=== PATIENT | female | born 1955 | race Two or more races ===

== ENCOUNTER 2018-08-02 05:25 | Day surgery (SDC) | payer OTHER ==
[~2018-08-02 05:25] MED LIST: ASA81 MG; ASPIR 8181 MG PO; ASPIRIN LOW-STR81 M1; METROPOLOL PO; TOPROL XL25 MG; URETRON D/S TAB1 TAB; ZOCOR10 PO
[2018-08-02] MEDS ORDERED: PERCOCET 5-3251 EACH PO ×2 (11:40)
[2018-08-02] MEDS ORDERED: NEURONTIN300 MG PO ×2 (11:42)
[2018-08-02] MEDS ORDERED: POLY119PG PO ×2 (11:43)
[2018-08-05] MEDS ORDERED: CELECOXIB100 MG PO (02:18)
[2018-08-05] MEDS ORDERED: SIMETHICONE180 MG PO (02:26)
== END 2018-08-02 13:00 | disposition home or self-care (01) ==
LOC: CIR.AMB 05:25
DX: K43.0 Incisional hernia with obstruction, without gangrene (principal)

== ENCOUNTER → 2018-08-04 | Emergency (ER) | payer OTHER ==
[~2018-08-04] VITALS: Ht 172.7 cm; Wt 67.1 kg
[~2018-08-04] MED LIST changes: +CELECOXIB100 MG PO; +NEURONTIN300 MG PO; +PERCOCET 5-3251 EACH PO; +POLY119PG PO; +SIMETHICONE180 MG PO
== END | disposition home or self-care (01) ==
LOC: ER 22:45
DX: L76.32 Postprocedural hematoma of skin and subcutaneous tissue following other procedure (principal)

== ENCOUNTER 2019-06-23 09:39 | Emergency (ER) | payer OTHER ==
[~2019-06-23] VITALS: Ht 157.5 cm; Wt 67.1 kg
[2019-06-23] MEDS ORDERED: SIMVASTATIN5 MG (09:54)
== END 2019-06-23 17:46 | disposition home or self-care (01) ==
LOC: ER 09:39
DX: K59.09 Other constipation (principal); K57.92 Diverticulitis of intestine, part unspecified, without perforation or abscess without bleeding

== ENCOUNTER 2021-04-03 10:07 | Outpatient (CLI) | payer OTHER ==
[~2021-04-03 10:07] MED LIST changes: +SIMVASTATIN5 MG
== END 2021-04-03 10:18 | disposition home or self-care (01) ==
LOC: TOM 10:07
PROVIDERS: ATTEND Internal Medicine Gastroenterology
DX: K43.9 Ventral hernia without obstruction or gangrene (principal)

== ENCOUNTER 2021-06-17 07:07 | Day surgery (SDC) | payer OTHER ==
[~2021-06-17 07:07] MED LIST changes: +ADULT LOW DOSE81 M1 PO; +SIMVAS PO
[2021-06-17] MEDS ORDERED: NEURONTIN600 M1 PO (13:28)
[2021-06-17] MEDS ORDERED: POLY119PG PO (13:28)
[2021-06-17] MEDS ORDERED: PERCOCET 5-3251 EACH PO (13:28)
== END 2021-06-17 16:30 | disposition home or self-care (01) ==
LOC: CIR.AMB 07:07
PROVIDERS: ATTEND Surgery
DX: K43.2 Incisional hernia without obstruction or gangrene (principal); K66.0 Peritoneal adhesions (postprocedural) (postinfection); K91.72 Accidental puncture and laceration of a digestive system organ or structure during other procedure; Z20.822 Contact with and (suspected) exposure to COVID-19

== ENCOUNTER → 2023-06-01 09:24 | Outpatient (CLI) | payer OTHER ==
[~2023-06-01 09:24] MED LIST changes: +NEURONTIN600 M1 PO
[2023-06-01 10:24] LABS: PH,URINE 5.5 (5.0-8.0); URINE APPEARANCE Clear; URINE BILIRRUBIN Negative (NEGATIVE); URINE BLOOD Small; URINE COLOR Yellow; URINE GLUCOSE Negative (NEGATIVE); URINE LEUKOCYTE Negative; URINE NITRATE Negative; URINE PROTEIN Negative (NEGATIVE)
[2023-06-01 10:27] LABS: URINE BACTERIA 474.9 uL (0.0-1933); URINE EPITHELIAL CELLS 30.7 uL (0.0-38.8); URINE RBC 46.4 uL (0.0-20.8); URINE WBC 9.8 uL (0.0-23.2)
[2023-06-01 11:03] LABS: CREATININE SERUM 0.78 mg/dL (0.55-1.02)
== END | disposition home or self-care (01) ==
LOC: LAB 09:24
PROVIDERS: ATTEND Radiology Diagnostic Radiology
DX: N28.1 Cyst of kidney, acquired (principal)

== ENCOUNTER 2023-06-08 07:29 | Outpatient (CLI) | payer OTHER | END 2023-06-08 07:39 | disposition home or self-care (01) | LOC: TOM 07:29 | PROVIDERS: ATTEND Urology | DX: N28.1 Cyst of kidney, acquired (principal) ==